=== PATIENT | male | born 1975 | race African-American/Black ===

== ENCOUNTER 2017-05-10 18:13 | Emergency (ER) | payer SELFPAY ==
[~2017-05-10] VITALS: Ht 180.3 cm; Wt 96.0 kg
[2017-05-10] MEDS ORDERED: KETOROLAC 60MG/2ML VIAL IM ONE (20:15)
[2017-05-10 21:00] VITALS: BP 144/84
== END 2017-05-10 21:48 | disposition home or self-care (01) ==
LOC: ER 18:13
DX: M25.511 Pain in right shoulder (principal); M54.2 Cervicalgia; R51 Headache; I10 Essential (primary) hypertension; V89.2XXA Person injured in unspecified motor-vehicle accident, traffic, initial encounter; Y93.89 Activity, other specified; Y92.481 Parking lot as the place of occurrence of the external cause; Y99.8 Other external cause status
CPT/HCPCS: 70450; 71045; 72125; 73030; 96372; 99284; J1885